=== PATIENT | female | born 1950 | race African-American/Black ===

== ENCOUNTER 2017-03-24 06:56 | Day surgery (SDC) | payer MEDICARE ==
[~2017-03-24] VITALS: Ht 165.1 cm; Wt 108.0 kg
[~2017-03-24 06:56] MED LIST: ACTOS15 MG OR; BL ADULT ASA81 MG OR; FLEXERIL OR; FLEXERIL PO; GLIMEPIRIDE4 MG OR; GLUCOPHAGE1000 MG OR; GLUCOPHAGE1000 MG PO; LIPITOR10 MG OR; LISINOP/HCTZ1 TA1 PO; LISINOPRIL20 MG OR; LORTAB 7.5 OR; MELOXICAM15 MG PO; NAPROSYN500 MG OR; SIMVASTATIN10 MG; SIMVASTATIN10 MG PO; ULTRAM50 M1 PO; VITAMIN D32000 UNIT PO
[2017-03-24 10:11] VITALS: BP 131/75
== END 2017-03-24 09:17 | disposition home or self-care (01) ==
LOC: ENDO 06:56
PROVIDERS: ATTEND Surgery
PROC: 0DJD8ZZ Inspection of Lower Intestinal Tract, Via Natural or Artificial Opening Endoscopic (ICD-10-PCS; principal; 2017-03-24)
DX: Z12.11 Encounter for screening for malignant neoplasm of colon (principal); E11.9 Type 2 diabetes mellitus without complications; I10 Essential (primary) hypertension

== ENCOUNTER 2020-06-13 20:23 | Emergency (ER) | payer MEDICARE ==
[~2020-06-13] VITALS: Ht 165.1 cm; Wt 108.0 kg
[~2020-06-13 20:23] MED LIST changes: +NAPROXEN500 MG PO
[2020-06-13 21:02] LABS: URINE BILIRUBIN - DIPSTICK NEGATIVE (NEGATIVE); URINE BLOOD DIPSTICK NEGATIVE (NEGATIVE); URINE COLOR YELLOW; URINE GLUCOSE - DIPSTICK 100 mg/dL (NEGATIVE); URINE KETONE TRACE mg/dL (NEGATIVE); URINE LEUK ESTERASE NEGATIVE (NEGATIVE); URINE NITRITE - DIPSTICK NEGATIVE (Negative); URINE PROTEIN - DIPSTICK NEGATIVE (NEG-TRACE); URINE SPECIFIC GRAVITY >=1.030; URINE UROBILINOGEN - DIPSTICK 0.2 E.U./dL (0.2)
[2020-06-13] MEDS ORDERED: VOLTAREN - GENE75 MG PO (22:01)
[2020-06-13 22:25] VITALS: BP 178/88
== END 2020-06-13 22:25 | disposition home or self-care (01) ==
LOC: ED 20:23
PROVIDERS: Family Medicine
DX: S39.012A Strain of muscle, fascia and tendon of lower back, initial encounter (principal); E11.9 Type 2 diabetes mellitus without complications; I10 Essential (primary) hypertension; X58.XXXA Exposure to other specified factors, initial encounter

== ENCOUNTER 2020-07-07 21:11 | Emergency (ER) | payer MEDICARE ==
[~2020-07-07] VITALS: Ht 165.1 cm; Wt 109.0 kg
[~2020-07-07 21:11] MED LIST changes: +VOLTAREN - GENE75 MG PO
[2020-07-08 01:30] VITALS: BP 175/70
== END 2020-07-08 01:32 | disposition home or self-care (01) ==
LOC: ED 21:11
DX: M79.651 Pain in right thigh (principal); M25.561 Pain in right knee; E11.9 Type 2 diabetes mellitus without complications; I10 Essential (primary) hypertension; Z79.84 Long term (current) use of oral hypoglycemic drugs

== ENCOUNTER 2021-01-03 08:08 | Emergency (ER) | payer MEDICARE ==
[~2021-01-03] VITALS: Ht 165.1 cm; Wt 100.0 kg
[2021-01-03] MEDS ORDERED: ULTRAM50 M1 PO (08:29)
[2021-01-03] MEDS ORDERED: FAMCICLOVIR500 MG PO (08:29)
[2021-01-03] MEDS ORDERED: CYCLOBENZAPRINE10 MG PO (08:29)
[2021-01-03 09:05] VITALS: BP 186/93
== END 2021-01-03 09:05 | disposition home or self-care (01) ==
LOC: ED 08:08
DX: B02.9 Zoster without complications (principal); M54.5 Low back pain; I10 Essential (primary) hypertension; E11.9 Type 2 diabetes mellitus without complications; E78.00 Pure hypercholesterolemia, unspecified; Z79.84 Long term (current) use of oral hypoglycemic drugs

== ENCOUNTER 2022-02-07 14:49 | Emergency (ER) | payer MEDICARE ==
[2022-02-07] VITALS (7 sets, daily range): BP systolic 141–199; BP diastolic 64–134
[~2022-02-07] VITALS: Ht 165.1 cm; Wt 99.0 kg
[~2022-02-07 14:49] MED LIST changes: +CYCLOBENZAPRINE10 MG PO; +FAMCICLOVIR500 MG PO
[2022-02-07] MEDS ORDERED: VOLTAREN1%GEL TOP (16:19)
[2022-02-07] MEDS ORDERED: TRAMADOL HYDROC50 M1 PO (16:19)
== END 2022-02-07 16:39 | disposition home or self-care (01) ==
LOC: ED 14:49
DX: M25.512 Pain in left shoulder (principal); I10 Essential (primary) hypertension; E11.9 Type 2 diabetes mellitus without complications; Z79.84 Long term (current) use of oral hypoglycemic drugs

== ENCOUNTER 2024-03-20 09:07 | Emergency (ER) | payer MEDICARE ==
[~2024-03-20] VITALS: Ht 165.1 cm; Wt 99.7 kg
[2024-03-20] VITALS (12 sets, daily range): BP systolic 138–174; BP diastolic 64–79
[~2024-03-20 09:07] MED LIST changes: +TRAMADOL HYDROC50 M1 PO; +VOLTAREN1%GEL TOP
[2024-03-20] MEDS ORDERED: NAPROXEN500 MG PO (12:01)
[2024-03-20] MEDS ORDERED: NAPROXEN 250 MG/TAB PO ONE (12:05)
== END 2024-03-20 12:20 | disposition home or self-care (01) ==
LOC: ED 09:07
DX: M79.651 Pain in right thigh (principal); E11.9 Type 2 diabetes mellitus without complications; I10 Essential (primary) hypertension; E78.00 Pure hypercholesterolemia, unspecified; Z79.84 Long term (current) use of oral hypoglycemic drugs